=== PATIENT | male | born 1975 | race Caucasian/White ===

== ENCOUNTER 2018-08-11 04:42 | Emergency (ER) | payer MEDICAID ==
[~2018-08-11] VITALS: Ht 177.8 cm; Wt 94.3 kg
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
[2018-08-11] MEDS ORDERED: IBUPROFEN 400 MG TABLET ONE (04:55)
[2018-08-11] MEDS ORDERED: IBUPROFEN 400 MG TABLET PO ONE (05:00)
--- NOTE | 2018-08-11 05:00 | NUR ---
RADIO AT BEDSIDE.
[2018-08-11 05:23] VITALS: BP 148/98
== END 2018-08-11 05:24 | disposition home or self-care (01) ==
LOC: ER 04:43
DX: S50.02XA Contusion of left elbow, initial encounter (principal); S80.212A Abrasion, left knee, initial encounter; S80.211A Abrasion, right knee, initial encounter; F17.200 Nicotine dependence, unspecified, uncomplicated; Z98.890 Other specified postprocedural states; W01.0XXA Fall on same level from slipping, tripping and stumbling without subsequent striking against object, initial encounter; Y93.89 Activity, other specified; Y92.89 Other specified places as the place of occurrence of the external cause; Y99.8 Other external cause status
CPT/HCPCS: 73080; 99283; A4606; Z7610

== ENCOUNTER 2022-06-30 01:52 | Emergency (ER) | payer MEDICAID, OTHER ==
[~2022-06-30] VITALS: Ht 177.8 cm; Wt 93.0 kg
--- NOTE | 2022-06-30 02:19 | NUR ---
BIBSLEF C/O LEFT ELBOW PAIN S/P FALL X 1 WEEK WITH INCREASED PAIN AND REDNESS TO ELBOW. ENDORSES LOW GRADE FEVERS HE TREATED AT HOME WITH TYLENOL. AFEBRILE AT TRIAGE. PLACED ON MONITOR AND V/S WNL.
--- NOTE | 2022-06-30 02:25 | NUR ---
XRAY AT BEDSIDE
[2022-06-30] MEDS ORDERED: VANCOMYCIN 1 GM VIAL ONE (02:50)
[2022-06-30] MEDS ORDERED: ACETAMINOPHEN 325 MG TABLET PO PRN (03:00)
[2022-06-30] MEDS ORDERED: ENOXAPARIN SODIUM 40 MG/0.4 ML DISP.SYRIN SQ SCH (03:00)
[2022-06-30] MEDS ORDERED: VANCOMYCIN 1 GM in IV D5W 250 ML IV ONE (03:00)
[2022-06-30] MEDS ORDERED: IV NS 0.9% 1,000 ML IV PRN (03:00)
[2022-06-30] MEDS ORDERED: ONDANSETRON HCL/PF 4 MG/2 ML VIAL IVP PRN (03:00)
--- NOTE | 2022-06-30 03:00 | NUR ---
GALLITO SENT TO LAB
--- NOTE | 2022-06-30 03:00 | NUR ---
20G IV STARTED RAC. BLOOD AND CULTURES SENT TO LAB.
[2022-06-30 03:02] LABS: BASOPHILS % (AUTO) 0.3 % (0.0-2.0); EOSINOPHILS % (AUTO) 1.6 % (0.0-6.0); HEMATOCRIT 37 % (39-51); HEMOGLOBIN 12.5 g/dL (13.5-17.5); LYMPHOCYTES # (AUTO) 1.1 K/uL (0.8-4.8); LYMPHOCYTES % (AUTO) 12.7 % (20.0-44.0); MEAN CORPUSCULAR HGB CONC 34 g/dl (31.0-36.0); MEAN CORPUSCULAR VOLUME 90 fL (80-96); MONOCYTES # (AUTO) 0.9 K/uL (0.1-1.30); MONOCYTES % (AUTO) 10.1 % (2.0-12.0); NEUTROPHILS # (AUTO) 6.4 K/uL (1.8-8.9); NEUTROPHILS % (AUTO) 75.3 % (43.0-81.0); PLATELET COUNT (AUTO) 267 K/uL (150-450); RED BLOOD CELL COUNT(AUTO) 4.04 MIL/uL (4.5-6.0); WHITE BLOOD COUNT (AUTO) 8.5 K/uL (4.3-11.0)
[2022-06-30 03:14] LABS: CALCIUM, SERUM 9.2 mg/dL (8.5-10.1); CREATININE 1.1 mg/dL (0.6-1.3); POTASSIUM 4.1 mmol/L (3.5-5.1)
[2022-06-30 03:28] LABS: ALBUMIN 3.4 g/dL (3.4-5.0); BILIRUBIN,DIRECT 0.2 mg/dL (0.0-0.2); BILIRUBIN,TOTAL 0.4 mg/dL (0.2-1.0)
--- NOTE | 2022-06-30 04:06 | NUR ---
dr. rivas on the phone dr. plummer. pt is going to [facility]
--- NOTE | 2022-06-30 04:38 | NUR ---
ACCEPTED AT [facility] ROOM 761-[address] CM WILL CALL BACK WITH TRANSPORT ETA
--- NOTE | 2022-06-30 04:49 | NUR ---
[facility] ETA IS 0830 FOR PT TO TRANSFER TO [facility] PER [facility] TRANSFER [place]
--- NOTE | 2022-06-30 07:18 | NUR ---
CALLED TO GIVE REPORT TO [facility]. WAS TOLD TO CALL AT 0800.
[2022-06-30] MEDS ORDERED: SULF1TAB48 PO (07:34)
[2022-06-30] MEDS ORDERED: CEPH500C2 PO (07:34)
--- NOTE | 2022-06-30 07:34 | NUR ---
Patient does not wish to proceed with medical care recommended by Dr. Peterson. Patient given information related to possible complications, up to and including , which could occur as a result of leaving the hospital at this time. Patient verbalizes understanding of risks involved due to leaving against medical advice. Patient has signed AMA form.
[2022-06-30 07:39] VITALS: BP 135/88
[2022-06-30] MEDS ORDERED: VANCOMYCIN 1.25 GM in IV D5W 250 ML IV SCH (11:00)
== END 2022-06-30 07:40 | disposition left against medical advice (07) ==
LOC: ER 01:56
DX: S50.9 Unspecified superficial injury of elbow and forearm (principal); L03.114 Cellulitis of left upper limb; W01.0XXS Fall on same level from slipping, tripping and stumbling without subsequent striking against object, sequela; Z20.822 Contact with and (suspected) exposure to COVID-19
CPT/HCPCS: 99285; 96365; 87426; 73080; 85025; 80048; 83605; 80076; 36415; 85730; 87081; 87040 ×2; J3370; C9803